=== PATIENT | male | born 1985 | race African-American/Black ===

== ENCOUNTER 2021-10-07 15:42 | Inpatient (IN) | payer OTHER ==
[~2021-10-07] VITALS: Ht 177.8 cm; Wt 93.1 kg
[2021-10-07 18:59] LABS: HEMATOCRIT 45.2 % (42.0-52.0); HEMOGLOBIN 14.2 g/dl (13.5-17.5); MEAN CORPUSCULAR HEMOGLOBIN 24.5 pg (27.0-33.0); MEAN CORPUSCULAR HGB CONC 31.4 g/dl (32.0-36.5); MEAN CORPUSCULAR VOLUME 77.9 fl (80.0-96.0); PLATELET COUNT, AUTOMATED 211 10^3/uL (150-450); WHITE BLOOD COUNT 16.5 10^3/uL (4.0-10.0)
[2021-10-07 19:54] LABS: AMPHETAMINES LEVEL URINE NEGATIVE (NEGATIVE); BARBITURATES URINE NEGATIVE (NEGATIVE); BENZODIAZEPINES URINE NEGATIVE (NEGATIVE); CANNABINOIDS URINE NEGATIVE (NEGATIVE); COCAINE METABOLITE URINE NEGATIVE (NEGATIVE); METHADONE URINE NEGATIVE (NEGATIVE); OPIATES URINE NEGATIVE (NEGATIVE); PHENCYCLIDINE URINE NEGATIVE (NEGATIVE)
[2021-10-07 19:56] LABS: ACETAMINOPHEN LEVEL < 2.0 UG/ML (10.0-30.0); ALBUMIN 3.7 GM/DL (3.2-5.2); ALT/SGPT 27 U/L (12-78); BILIRUBIN,DIRECT < 0.1 MG/DL (0.0-0.2); BILIRUBIN,TOTAL 0.1 MG/DL (0.2-1.0); BLOOD UREA NITROGEN 15 MG/DL (7-18); CALCIUM LEVEL 8.8 MG/DL (8.5-10.1); CARBON DIOXIDE LEVEL 26 MEQ/L (21-32); CHLORIDE LEVEL 107 MEQ/L (98-107); CREATININE FOR GFR 1.15 MG/DL (0.70-1.30); ETHYL ALCOHOL (ETHANOL) < 0.003 % (0.000-0.010); GLOMERULAR FILTRATION RATE > 60.0 (>60); GLUCOSE, FASTING 95 MG/DL (70-100); POTASSIUM SERUM 3.8 MEQ/L (3.5-5.1); SALICYLATE LEVEL < 1.7 MG/DL (5.0-30.0); SODIUM LEVEL 141 MEQ/L (136-145); TOTAL PROTEIN 7.5 GM/DL (6.4-8.2)
[2021-10-07 20:34] LABS: APPEARANCE, URINE CLEAR (CLEAR); BACTERIA, URINE AUTO NEGATIVE (NEGATIVE); BILIRUBIN, URINE AUTO NEGATIVE (NEGATIVE); BLOOD, URINE BLOOD NEGATIVE (NEGATIVE); COLOR, URINE YELLOW (YELLOW); GLUCOSE, URINE (UA) AUTO NEGATIVE (NEGATIVE); KETONE, URINE AUTO NEGATIVE (NEGATIVE); LEUKOCYTE ESTERASE, URINE AUTO NEGATIVE (NEGATIVE); NITRITE, URINE AUTO NEGATIVE (NEGATIVE); PROTEIN, URINE AUTO NEGATIVE (NEGATIVE); RBC, URINE AUTO 0 /HPF (0-3); SPECIFIC GRAVITY URINE AUTO 1.017 (1.002-1.035); SQUAMOUS EPITHELIAL CELL UR AU 0 /HPF (0-6); UROBILINOGEN, URINE AUTO 0.2 mg/dL (0.0-2.0); WBC, URINE AUTO 0 /HPF (0-3)
[2021-10-07 21:03] LABS: RSV AMPLIFICATION NEGATIVE (NEGATIVE)
[2021-10-08] MEDS ORDERED: ACETAMINOPHEN TAB 650MG DOSE (2X325MG) PO ONE (10:25)
[2021-10-08] MEDS ORDERED: ACETAMINOPHEN TAB 650MG DOSE (2X325MG) PO PRN (17:10)
[2021-10-08] MEDS ORDERED: MAALOX 30 ML SUSP *UDC PO PRN (17:10)
[2021-10-08] MEDS ORDERED: MOM 30ML SUSPENSION UDC PO PRN (17:10)
[2021-10-08] MEDS ORDERED: LORazepam 1 MG TAB PO PRN (17:10)
[2021-10-08 19:00] VITALS: BP 148/100
[2021-10-09 06:22] VITALS: BP 109/72
[2021-10-09] MEDS ORDERED: TRAZ-252 PO (09:40)
[2021-10-09] MEDS ORDERED: HOME MED LIST COMPLETE! XX SCH (09:45)
[2021-10-09] MEDS: NICOTINE 21MG/24HR 1 EA TRANSDERMAL TD SCH (10:02)
[2021-10-09] MEDS: VENLAFAXINE **XR** 37.5 MG CAPSULE PO SCH (10:04)
[2021-10-09 11:22] LABS: HEMATOCRIT 50.2 % (42.0-52.0); MEAN CORPUSCULAR HEMOGLOBIN 25.4 pg (27.0-33.0); MEAN CORPUSCULAR HGB CONC 31.9 g/dl (32.0-36.5); MEAN CORPUSCULAR VOLUME 79.8 fl (80.0-96.0); PLATELET COUNT, AUTOMATED 207 10^3/uL (150-450); RED BLOOD COUNT 6.29 10^6/uL (4.30-6.10); WHITE BLOOD COUNT 5.3 10^3/uL (4.0-10.0)
[2021-10-09 12:42] LABS: PERCENT SATURATION 21.5 % (19.7-50.0)
[2021-10-09 18:18] VITALS: BP 137/86
[2021-10-09] MEDS: FERROUS SULFATE 325MG TAB PO SCH (21:08)
[2021-10-09] MEDS: traZODone 50 MG TAB PO PRN (21:08)
[2021-10-09] MEDS: ARIPiprazole 2 MG TAB PO SCH (21:08)
[2021-10-10 06:44] VITALS: BP 123/58
[2021-10-10] MEDS: NICOTINE 21MG/24HR 1 EA TRANSDERMAL TD SCH (09:00)
[2021-10-10] MEDS: VENLAFAXINE **XR** 37.5 MG CAPSULE PO SCH (09:58)
[2021-10-10] MEDS: FERROUS SULFATE 325MG TAB PO SCH ×2 (09:58→21:57)
[2021-10-10 19:14] VITALS: BP 134/81
[2021-10-10] MEDS: traZODone 50 MG TAB PO PRN (21:57)
[2021-10-10] MEDS: ARIPiprazole 2 MG TAB PO SCH (21:57)
[2021-10-11 06:37] VITALS: BP 130/81
[2021-10-11] MEDS: NICOTINE 21MG/24HR 1 EA TRANSDERMAL TD SCH (10:43)
[2021-10-11] MEDS: VENLAFAXINE **XR** 37.5 MG CAPSULE PO SCH (10:44)
[2021-10-11] MEDS: FERROUS SULFATE 325MG TAB PO SCH ×2 (10:44→21:11)
[2021-10-11 18:10] VITALS: BP 145/82
[2021-10-11] MEDS: IBUPROFEN 600MG TAB PO PRN (18:24)
[2021-10-11] MEDS: ARIPiprazole 2 MG TAB PO SCH (21:11)
[2021-10-12 06:57] VITALS: BP 115/76
[2021-10-12] MEDS: FERROUS SULFATE 325MG TAB PO SCH ×2 (08:58→20:28)
[2021-10-12] MEDS: VENLAFAXINE **XR** 75MG CAPSULE PO SCH (08:58)
[2021-10-12] MEDS: NICOTINE 21MG/24HR 1 EA TRANSDERMAL TD SCH (08:58)
[2021-10-12 18:12] VITALS: BP 159/70
[2021-10-12] MEDS: ARIPiprazole 2 MG TAB PO SCH (20:28)
[2021-10-13 06:44] VITALS: BP 125/77
[2021-10-13] MEDS: NICOTINE 21MG/24HR 1 EA TRANSDERMAL TD SCH (07:42)
[2021-10-13] MEDS: VENLAFAXINE **XR** 75MG CAPSULE PO SCH (09:52)
[2021-10-13] MEDS: FERROUS SULFATE 325MG TAB PO SCH ×2 (09:52→20:20)
[2021-10-13] MEDS: IBUPROFEN 600MG TAB PO PRN ×2 (11:43→20:40)
[2021-10-13 18:08] VITALS: BP 144/86
[2021-10-13] MEDS: ARIPiprazole 2 MG TAB PO SCH (20:20)
[2021-10-13] MEDS: traZODone 50 MG TAB PO PRN (20:20)
[2021-10-14 06:41] VITALS: BP 128/83
[2021-10-14] MEDS: NICOTINE 21MG/24HR 1 EA TRANSDERMAL TD SCH (09:00)
[2021-10-14] MEDS: FERROUS SULFATE 325MG TAB PO SCH ×2 (09:42→20:16)
[2021-10-14] MEDS: VENLAFAXINE **XR** 75MG CAPSULE PO SCH (09:42)
[2021-10-14 16:16] VITALS: BP 122/66
[2021-10-14] MEDS: IBUPROFEN 600MG TAB PO PRN (18:23)
[2021-10-14] MEDS: traZODone 50 MG TAB PO PRN (20:16)
[2021-10-15 06:43] VITALS: BP 115/79
[2021-10-15] MEDS: NICOTINE 21MG/24HR 1 EA TRANSDERMAL TD SCH (09:00)
[2021-10-15] MEDS: VENLAFAXINE **XR** 75MG CAPSULE PO SCH (09:32)
[2021-10-15] MEDS: FERROUS SULFATE 325MG TAB PO SCH ×2 (09:32→20:12)
[2021-10-15 16:45] VITALS: BP 128/78
[2021-10-15] MEDS: traZODone 50 MG TAB PO PRN (20:12)
[2021-10-15] MEDS ORDERED: ARIPiprazole 10 MG TAB PO SCH (21:00)
[2021-10-16 06:41] VITALS: BP 115/74
[2021-10-16] MEDS: FERROUS SULFATE 325MG TAB PO SCH ×2 (08:42→20:22)
[2021-10-16] MEDS: VENLAFAXINE **XR** 75MG CAPSULE PO SCH (08:42)
[2021-10-16] MEDS: IBUPROFEN 600MG TAB PO PRN (08:46)
[2021-10-16] MEDS: NICOTINE 21MG/24HR 1 EA TRANSDERMAL TD SCH (08:46)
[2021-10-16 16:25] VITALS: BP 137/89
[2021-10-16] MEDS: ARIPiprazole 15 MG TAB (AbiLIFY) PO SCH (20:22)
[2021-10-16] MEDS: traZODone 50 MG TAB PO PRN (20:22)
[2021-10-17 06:35] VITALS: BP 143/89
[2021-10-17] MEDS: NICOTINE 21MG/24HR 1 EA TRANSDERMAL TD SCH (08:31)
[2021-10-17] MEDS: VENLAFAXINE **XR** 75MG CAPSULE PO SCH (08:32)
[2021-10-17] MEDS: FERROUS SULFATE 325MG TAB PO SCH ×2 (08:32→20:45)
[2021-10-17 18:14] VITALS: BP 131/81
[2021-10-17] MEDS: ARIPiprazole 15 MG TAB (AbiLIFY) PO SCH (20:45)
[2021-10-18 06:56] VITALS: BP 148/90
[2021-10-18] MEDS: NICOTINE 21MG/24HR 1 EA TRANSDERMAL TD SCH (08:24)
[2021-10-18] MEDS: FERROUS SULFATE 325MG TAB PO SCH ×2 (08:31→20:02)
[2021-10-18] MEDS: VENLAFAXINE **XR** 75MG CAPSULE PO SCH (08:31)
[2021-10-18 16:06] VITALS: BP 131/77
[2021-10-18] MEDS: ARIPiprazole 15 MG TAB (AbiLIFY) PO SCH (20:02)
[2021-10-19 06:41] VITALS: BP 138/89
[2021-10-19] MEDS: NICOTINE 21MG/24HR 1 EA TRANSDERMAL TD SCH (08:35)
[2021-10-19] MEDS: FERROUS SULFATE 325MG TAB PO SCH ×2 (08:36→20:09)
[2021-10-19] MEDS: VENLAFAXINE **XR** 75MG CAPSULE PO SCH (08:36)
[2021-10-19 16:36] VITALS: BP 123/75
[2021-10-19] MEDS: ARIPiprazole 15 MG TAB (AbiLIFY) PO SCH (20:09)
[2021-10-20 06:35] VITALS: BP 130/100
[2021-10-20] MEDS: FERROUS SULFATE 325MG TAB PO SCH ×2 (08:24→20:07)
[2021-10-20] MEDS: VENLAFAXINE **XR** 75MG CAPSULE PO SCH (08:24)
[2021-10-20] MEDS: NICOTINE 21MG/24HR 1 EA TRANSDERMAL TD SCH (08:25)
[2021-10-20 16:53] VITALS: BP 132/70
[2021-10-20] MEDS: ARIPiprazole 15 MG TAB (AbiLIFY) PO SCH (20:07)
[2021-10-21 06:23] VITALS: BP 139/90
[2021-10-21] MEDS: VENLAFAXINE **XR** 75MG CAPSULE PO SCH (08:20)
[2021-10-21] MEDS: NICOTINE 21MG/24HR 1 EA TRANSDERMAL TD SCH (08:20)
[2021-10-21] MEDS: FERROUS SULFATE 325MG TAB PO SCH (08:20)
[2021-10-21] MEDS ORDERED: ABIL1TAB12 PO (09:04)
[2021-10-21] MEDS ORDERED: VENL75CA47 PO (09:04)
[2021-10-23] MEDS ORDERED: VENL75CA47 PO (13:35)
== END 2021-10-21 13:57 | disposition home or self-care (01) | DRG 885 ==
LOC: M ED 15:42 → M ED INP 10-08 17:08 → M PSY 10-08 18:51
PROVIDERS: ADMIT Psychiatry & Neurology Psychiatry; ATTEND Psychiatry & Neurology Psychiatry
DX: F32.3 Major depressive disorder, single episode, severe with psychotic features (principal); R45.851 Suicidal ideations; Z79.899 Other long term (current) drug therapy; Z20.822 Contact with and (suspected) exposure to COVID-19; Z56.5 Uncongenial work environment